=== PATIENT | female | born 1995 | race Caucasian/White ===

== ENCOUNTER 2016-12-25 05:26 | Emergency (ER) | payer OTHER ==
[~2016-12-25] VITALS: Ht 152.4 cm; Wt 63.0 kg
[~2016-12-25 05:26] MED LIST: ACET500C5 PO; CIPR500T4 PO; IBUP-1542 PO; METR500T PO; NITR-58 PO; ONDA4TAB14 PO; PHEN-537 PO; PRENAT PO
[2016-12-25 05:32] VITALS: Ht 152.4 cm; Wt 63.0 kg
[2016-12-25] MEDS ORDERED: CEPH-443 PO (05:40)
[2016-12-25] MEDS ORDERED: PHEN-616 PO (05:40)
[2016-12-25 05:43] LABS: URINE BLOOD (Dip) POC 3+ (NEGATIVE)
--- NOTE | 2016-12-25 05:43 | ERD ---
ER Documentation Chief Complaint Date/Time DATE: 12/25/16 TIME: 05:41 Chief Complaint painful urination x 1 day HPI This is a 21-year-old female presenting to the emergency department complaining of painful urination and frequency for the past 1 day. Patient rates the pain moderate in severity when she pees. Patient denies any fevers, flank pain, hematuria. Patient has not tried any medications for this. She denies . she denies of abdominal pain or pelvic pain ROS All systems reviewed and are negative except as per history of present illness. Medications Home Meds Active Scripts Phenazopyridine Hcl* (Phenazopyridine Hcl*) 200 Mg Tablet, 200 MG PO TID Y for PAIN, #10 TAB Prov:KAR ASHFORD 12/25/16 Cephalexin* (Keflex*) 500 Mg Capsule, 500 MG PO TID for 7 Days, CAP Prov:KAR ASHFORD 12/25/16 Acetaminophen* (Tylophen*) 500 Mg Capsule, 1 CAP PO Q6H Y for PAIN AND OR ELEVATED TEMP, #20 CAP Prov:STACIE CEE 06/18/16 Metronidazole* (Flagyl*) 500 Mg Tablet, 500 MG PO TID for 7 Days, TAB Prov:STACIE CEE 06/18/16 Ciprofloxacin Hcl* (Ciprofloxacin Hcl*) 500 Mg Tablet, 500 MG PO BID, #14 TAB Prov:STACIE CEE 06/18/16 Ondansetron (Ondansetron Odt) 4 Mg Tab.rapdis, 4 MG PO Q6H Y for NAUSEA AND/OR VOMITING, #12 TAB Prov:STACIE CEE 06/18/16 Phenazopyridine Hcl* (Pyridium*) 100 Mg Tab, 100 MG PO TID Y for URINARY PAIN, # 6 TAB Prov:DRAKE COELHO NP 11/22/15 Nitrofurantoin Monohyd Macrocr* (Macrobid*) 100 Mg Capsr, 100 MG PO BID for 7 Days, CAP Prov:DRAKE COELHO NP 11/22/15 Ibuprofen* (Ibuprofen*) 600 Mg Tab, 600 MG PO Q6, #20 0 Refills Prov:HUONG MCGUIRE MD 05/06/15 Reported Medications Multivit/Min/Fol Ac/Iron/Pren* ( S*) 1 Tab Tab, 1 TAB PO DAILY, TAB 05/05/15 Allergies Allergies: Coded Allergies: No Known Drug Allergies (Unverified Allergy, Unknown, 06/18/16) PMhx/Soc Medical and Surgical Hx: pt denies Medical Hx, pt denies Surgical Hx Hx Alcohol Use: No Hx Substance Use: No Hx Tobacco Use: No Smoking Status: Never smoker Physical Exam Vitals Vital Signs Date Time Temp Pulse Resp B/P Pulse Ox O2 Delivery O2 Flow Rate FiO2 12/25/16 05:32 98.3 92 20 122/80 100 Physical Exam General: well-developed/well-nourished, in no apparent distress, non-toxic appearing HENT: NC/AT Eyes: Conjunctiva normal Neck: Supple Pulm: CTA bilaterally, normal breathing CV: Normal S1S2 GI: Soft, non-distended, normal bowel sounds, TTP on suprapubic region Back: No midline tenderness, no masses, No CVAT Ext: No clubbing, cyanosis, or edema Neuro: Alert and orientated Skin: intact, normal turgor Psych: Normal mood and mentation Procedures/MDM MDM: This is a 21-year-old female presents to the ER with urinary tract infection. Low suspicion for pyelonephritis, nephrolithiasis, ovarian torsion due to physical examination and diagnostic testing. Urine dipstick showed positive urinary tract infection. Urine test is negative. Disposition: hemodynamically stable for discharge. Prescriptions Keflex and Pyridium have been given to take as directed. Strict precautions were given to return to the ER if not improving as expected or for any worsening signs and symptoms Departure Diagnosis: Primary Impression: UTI (urinary tract infection) Condition: Stable Patient Instructions: Understanding Urinary Tract Infections (UTIs) Referrals: FARHEEN GILMORE MD (PCP) Additional Instructions: Visite a phillips elisa umana para un EXAMEN.Regrese a estas instalaciones si no se mejora mary esperbamos o mary le dijimos. Carpenter toda la medicina sobeida y mary se le indic. Return to this facility if you are not improving as expected. KAR ASHFORD PA-C Dec 25, 2016 05:43
== END 2016-12-25 05:48 | disposition home or self-care (01) ==
LOC: FTE 05:26
DX: N39.0 Urinary tract infection, site not specified (principal)
CPT/HCPCS: 81003; Z7502; 99283

== ENCOUNTER 2017-03-14 19:04 | Emergency (ER) | payer OTHER ==
[~2017-03-14] VITALS: Ht 157.5 cm; Wt 63.5 kg
[~2017-03-14 19:04] MED LIST changes: +CEPH-443 PO; +PHEN-616 PO
[2017-03-14 19:15] VITALS: Ht 157.5 cm; Wt 63.5 kg
--- NOTE | 2017-03-14 19:56 | ERD ---
ER Documentation Chief Complaint Date/Time DATE: 03/14/17 TIME: 19:53 Chief Complaint dysuria x1 day. +bilateral leg rash x5 months. (SASHA RODRIGES MD) HPI This 21-year-old female presents with multiple complaints. She has dysuria for the last day. She denies fevers or vomiting, sore throat or cough. She also has a rash on her lower extremities last 2 days. She denies itching or foreign travel or additional complaints. She denies any upper extremity or truncal rashes.Patient denies any gross hematuria, vomitus or any other bleeding. (SASHA RODRIGES MD) ROS All systems reviewed and are negative except as per history of present illness. (SASHA RODRIGES MD) Medications Home Meds Active Scripts Phenazopyridine Hcl* (Pyridium*) 200 Mg Tab, 200 MG PO TID Y for URINARY PAIN, # 6 TAB Prov:KERRY NGUYEN NP 03/14/17 Ciprofloxacin Hcl* (Ciprofloxacin Hcl*) 500 Mg Tablet, 500 MG PO BID for 10 Days , TAB Prov:KERRY NGUYEN NP 03/14/17 Phenazopyridine Hcl* (Phenazopyridine Hcl*) 200 Mg Tablet, 200 MG PO TID Y for PAIN, #10 TAB Prov:KAR ASHFORD-C 12/25/16 Cephalexin* (Keflex*) 500 Mg Capsule, 500 MG PO TID for 7 Days, CAP Prov:KAR ASHFORD-C 12/25/16 Acetaminophen* (Tylophen*) 500 Mg Capsule, 1 CAP PO Q6H Y for PAIN AND OR ELEVATED TEMP, #20 CAP Prov:STACIE CEE-C 06/18/16 Metronidazole* (Flagyl*) 500 Mg Tablet, 500 MG PO TID for 7 Days, TAB Prov:STACIE CEEC 06/18/16 Ciprofloxacin Hcl* (Ciprofloxacin Hcl*) 500 Mg Tablet, 500 MG PO BID, #14 TAB Prov:STACIE CEE-C 06/18/16 Ondansetron (Ondansetron Odt) 4 Mg Tab.rapdis, 4 MG PO Q6H Y for NAUSEA AND/OR VOMITING, #12 TAB Prov:STACIE CEE PA-C 06/18/16 Phenazopyridine Hcl* (Pyridium*) 100 Mg Tab, 100 MG PO TID Y for URINARY PAIN, # 6 TAB Prov:DRAKE COELHO NP 11/22/15 Nitrofurantoin Monohyd Macrocr* (Macrobid*) 100 Mg Capsr, 100 MG PO BID for 7 Days, CAP Prov:DRAKE COELHO VOCATIONAL EXAMINER 11/22/15 Ibuprofen* (Ibuprofen*) 600 Mg Tab, 600 MG PO Q6, #20 0 Refills Prov:HUONG MCGUIRE MD 05/06/15 Reported Medications Multivit/Min/Fol Ac/Iron/Pren* ( S*) 1 Tab Tab, 1 TAB PO DAILY, TAB 05/05/15 Allergies Allergies: Coded Allergies: No Known Drug Allergies (Unverified Allergy, Unknown, 06/18/16) PMhx/Soc History of Surgery: No Anesthesia Reaction: No Hx Neurological Disorder: No Hx Respiratory Disorders: No Hx Cardiac Disorders: No Hx Psychiatric Problems: No Hx Miscellaneous Medical Probl: No Hx Alcohol Use: No Hx Substance Use: No Hx Tobacco Use: No Smoking Status: Never smoker (SASHA RODRIGES MD) Physical Exam Vitals Vital Signs Date Time Temp Pulse Resp B/P Pulse Ox O2 Delivery O2 Flow Rate FiO2 03/14/17 19:15 99.9 80 18 144/69 97 (KERRY NGUYEN NP) Physical Exam Const: []Alert, not ill-appearing. Alert, not ill-appearing per Head: Atraumatic Eyes: Normal Conjunctiva ENT: Normal External Ears, Nose and Mouth. Neck: Full range of motion..~ No meningismus. Resp: Clear to auscultation bilaterally Cardio: Regular rate and rhythm, no murmurs Abd: Soft, non tender, non distended. Normal bowel sounds Skin: No petechiae orPurpura.There is some nonblanching punctate 1-2 mm rash on her lower extremities. There is no skin lesions, warmth, erythema. Back: No midline or flank tenderness Ext: No cyanosis, or edema Neur: Awake and alert Psych: Normal Mood and Affect (SASHA RODRIGES MD) Result Diagram: 03/14/17205403/14/172054 Results 24 hrs Laboratory Tests Test 03/14/17 20:50 03/14/17 20:55 Urine Color YELLOW Urine Clarity SLIGHTLY CLOUDY Urine pH 5.0 Urine Specific [place] 1.023 Urine Ketones NEGATIVEmg/dL Urine Nitrite NEGATIVEmg/dL Urine Bilirubin NEGATIVEmg/dL Urine Urobilinogen NEGATIVEmg/dL Urine Leukocyte Esterase 2+Gurvinder/ul Urine Microscopic RBC 3/HPF Urine Microscopic WBC 14/HPF Urine Squamous Epithelial Cells FEW/HPF Urine Bacteria FEW/HPF Urine Hemoglobin 2+mg/dL Urine Glucose NEGATIVEmg/dL Urine Total Protein NEGATIVEmg/dl White Blood Count 10.910^3/ul Red Blood Count 4.4610^6/ul Hemoglobin 13.1g/dl Hematocrit 39.6% Mean Corpuscular Volume 88.8fl Mean Corpuscular Hemoglobin 29.4pg Mean Corpuscular Hemoglobin Concent 33.1g/dl Red Cell Distribution Width 12.4% Platelet Count 80448^3/UL Mean Platelet Volume 10.3fl Neutrophils % 68.3% Lymphocytes % 25.6% Monocytes % 3.9% Eosinophils % 1.6% Basophils % 0.3% Nucleated Red Blood Cells % 0.0/100WBC Neutrophils # (Manual) 7.510^3/ul Lymphocytes # 2.810^3/ul Monocytes # 0.410^3/ul Eosinophils # 0.210^3/ul Basophils # 0.010^3/ul Nucleated Red Blood Cells # 0.010^3/ul Sodium Level 140mmol/L Potassium Level 3.8mmol/L Chloride Level 106mmol/L Carbon Dioxide Level 26mmol/L Anion Gap 12 Blood Urea Nitrogen 9mg/dl Creatinine 0.69mg/dl Glucose Level 91mg/dl Calcium Level 9.6mg/dl Total Bilirubin 0.1mg/dl Direct Bilirubin 0.00mg/dl Indirect Bilirubin 0.1mg/dl Aspartate Amino Transf (AST/SGOT) 18IU/L Alanine Aminotransferase (ALT/SGPT) 28IU/L Alkaline Phosphatase 66IU/L Total Protein 7.9g/dl Albumin 4.5g/dl Globulin 3.40g/dl Albumin/Globulin Ratio 1.32 (KERRY NGUYEN NP) Procedures/MDM Given the nonblanching nature of rash CBC and CMP performed which are pending. Urine also pending. Case will be signed out to nurse practitioner cuisia. NesbittesHave the clinical appearance of viral rash or possible Henoch-Schnlein purpura patient shows no signs or symptoms of additional bleeding she has no hematuria does not ill-appearing. Further treatment and management will depend on laboratory work and urinalysis. (SASHA RODRIGES MD) Patient signed out to me by Dr Rodriges, lab results were reviewed, urinary tract infection and was treated with oral antibiotics and Pyridium to help with symptom relief, mild elevation of white count, most likely is consistent with infection. No bandemia noted, but the pyelonephritis at this time. Patient's rash most likely is viral, coags are normal. Patient was advised to follow-up with primary care doctor in 2 days for reevaluation of symptoms. Return to emergency department for any worsening symptoms. Disposition: Home. Stable (KERRY NGUYEN NP) Departure Diagnosis: Primary Impression: UTI (urinary tract infection) Urinary tract infection type: acute cystitis Hematuria presence: with hematuria Qualified Code: N30.01 - Acute cystitis with hematuria Additional Impression: Rash Condition: Stable SASHA RODIRGES MD Mar 14, 2017 19:56 KRERY NGUYEN NP Mar 14, 2017 22:16
[2017-03-14 21:16] LABS: ADD UMIC YES; UR ASCORBIC ACID NEGATIVE (NEGATIVE); UR BACTERIA FEW /HPF (NONE SEEN); UR BILIRUBIN (Dip) NEGATIVE (NEGATIVE); UR BLOOD (Dip) 2+ mg/dL (NEGATIVE); UR CLARITY SLIGHTLY CLOUDY (CLEAR); UR COLOR YELLOW (YELLOW); UR GLUCOSE (Dip) NEGATIVE (NEGATIVE); UR KETONES (Dip) NEGATIVE (NEGATIVE); UR LEUKOCYTE ESTERASE (Dip) 2+ Leu/ul (NEGATIVE); UR NITRITE (Dip) NEGATIVE (NEGATIVE); UR RBC 3 /HPF (0-5); UR SPECIFIC GRAVITY (Dip) 1.023 (1.003-1.030); UR SQUAMOUS EPITHELIAL CELL FEW /HPF (FEW); UR TOTAL PROTEIN (Dip) NEGATIVE (NEGATIVE); UR UROBILINOGEN (Dip) NEGATIVE (NEGATIVE)
[2017-03-14 21:38] LABS: BASOPHILS % 0.3 % (0.0-2.0); EOSINOPHILS # 0.2 10^3/ul (0.0-0.5); EOSINOPHILS % 1.6 % (0.0-7.0); HEMATOCRIT 39.6 % (37.0-47.0); HEMOGLOBIN 13.1 g/dl (12.0-16.0); LYMPHOCYTES # 2.8 10^3/ul (0.8-2.9); LYMPHOCYTES % 25.6 % (18.0-55.0); MEAN CORPUSCULAR HEMOGLOBIN 29.4 pg (29.0-33.0); MEAN CORPUSCULAR HGB CONC 33.1 g/dl (32.0-37.0); MEAN CORPUSCULAR VOLUME 88.8 fl (72.0-104.0); MEAN PLATELET VOLUME 10.3 fl (7.4-10.4); MONOCYTE # 0.4 10^3/ul (0.3-0.9); MONOCYTES % 3.9 % (0.0-13.0); NEUTROPHILS % 68.3 % (30.0-74.0); PLATELET COUNT 365 10^3/UL (140-415); RED BLOOD COUNT 4.46 10^6/ul (4.20-5.40); RED CELL DISTRIBUTION WIDTH 12.4 % (11.5-14.5); WHITE BLOOD COUNT 10.9 10^3/ul (4.8-10.8)
[2017-03-14 22:00] LABS: ALBUMIN 4.5 g/dl (3.3-4.9); ALBUMIN/GLOBULIN RATIO 1.32; BILIRUBIN,INDIRECT 0.1 mg/dl (0-1.1); BILIRUBIN,TOTAL 0.1 mg/dl (0.2-1.3); CALCIUM 9.6 mg/dl (8.4-10.2); CREATININE 0.69 mg/dl (0.44-1.00); POTASSIUM 3.8 mmol/L (3.5-5.1); TOTAL PROTEIN 7.9 g/dl (6.1-8.1)
[2017-03-14] MEDS ORDERED: CIPR500T4 PO (22:14)
[2017-03-14] MEDS ORDERED: PHEN-538 PO (22:14)
== END 2017-03-14 22:14 | disposition home or self-care (01) ==
LOC: FTE 19:04
DX: N30.01 Acute cystitis with hematuria (principal); R21 Rash and other nonspecific skin eruption
CPT/HCPCS: 36415; 80053; 81001; 85025; Z7502; 99283

== ENCOUNTER 2017-09-25 17:21 | Emergency (ER) | END 2017-09-25 20:34 | disposition home or self-care (01) ==

== ENCOUNTER 2018-09-11 09:41 | Emergency (ER) | payer OTHER ==
[~2018-09-11] VITALS: Ht 167.6 cm; Wt 106.0 kg
[~2018-09-11 09:41] MED LIST changes: +BEN25 PO; +HC30CR25 TOP; +PHEN-538 PO; -PHEN-616 PO; +PHEN-717 PO; +PRED20TA PO
[2018-09-11 09:52] VITALS: BP 152/61; PULSE 111; RESP 20; Ht 167.6 cm; Wt 106.0 kg
[2018-09-11] MEDS ORDERED: ACET500C5 PO (10:14)
[2018-09-11] MEDS ORDERED: BEN25 PO (10:14)
[2018-09-11] MEDS ORDERED: OFLO5DRO7 LEFT EAR (10:14)
[2018-09-11] MEDS ORDERED: AMOX500C2 PO (10:14)
--- NOTE | 2018-09-11 10:39 | ERD ---
ER Documentation Chief Complaint Chief Complaint Complains of bilateral ear pain x 3 days HPI 23-year-old female patient who is currently 30 weeks is presenting to the ED for a sore throat, cough, rhinorrhea, ear pain. Patient reports that she does not remember the exact last menstruation. Denies any chest pain, shortness of breath, nausea, vomiting, diarrhea, neck stiffness. Patient denies any vaginal bleeding, vaginal discharge, abdominal pain, dysuria, fever. ROS All systems reviewed and are negative except as per history of present illness. Medications Home Meds No Active Prescriptions or Reported Meds Allergies Allergies: Coded Allergies: No Known Drug Allergies (Unverified Allergy, Unknown, 09/25/17) PMhx/Soc History of Surgery: No Anesthesia Reaction: No Hx Neurological Disorder: No Hx Respiratory Disorders: No Hx Cardiac Disorders: No Hx Psychiatric Problems: No Hx Miscellaneous Medical Probl: No Hx Alcohol Use: No Hx Substance Use: No Hx Tobacco Use: No FmHx Family History: No diabetes, No coronary disease Physical Exam Vitals Vital Signs Date Temp Pulse Resp B/P (MAP) Pulse Ox O2 O2 Flow FiO2 Time Delivery Rate 09/11/18 96.6 111 20 152/61 98 09:52 (91) Physical Exam Const: Aga-erz-[id number], well-nourished. In no acute distress. Head: Atraumatic, normocephalic Eyes: Normal Conjunctiva without injection. No purulent discharge. PERRL. EOMI ENT: Normal external ear. Left ear canal with purulent discharge noticed inability visualize the TM. No tenderness palpation of the bilateral mastoid. Nasal canal clear with normal turbinates. Moist oropharynx without tonsillar exudates. Non-erythematous pharynx. Uvula midline. No drooling. No trismus. Neck: Full range of motion. No meningismus. No cervical lymphadenopathy. Resp: Clear to auscultation bilaterally. No wheezing, rhonchi, rales, or crackles. No accessory muscle use. No retractions. Cardio: Regular rate and rhythm. No murmurs, rubs or gallops. Abd: Soft, non tender, non distended. Normal bowel sounds. No palpable masses. No rebound tenderness. No guarding. Skin: No petechiae or rashes Back: No midline tenderness. No CVA tenderness. Ext: No cyanosis, or edema. Neur: Awake and alert. Psych: Normal Mood and Affect Procedures/MDM 23-year-old female patient with no significant past medical history presents to ED complaining of bilateral ear pain that started 3 days ago associated with cough, sore throat, rhinorrhea. Patient is afebrile nontoxic appearing. Patient's physical exam is consistent with otitis media and externa. Patient does not have tenderness to palpation of mastoid. Low suspicion for mastoiditis. Patient's physical exam include lungs which were clear to auscultation and a normal pulse oximetry. Patient is speaking in full sentences. There is a low suspicion for tympanic membrane rupture, pneumonia, epiglottitis, croup, viral/strep pharyngitis, sinusitis, peritonsillar abscess, retropharyngeal abscess, meningitis, sepsis, acute abdomen or other emergent conditions. Diagnosis: Ear pain, Runny nose Discharge medications: Benadryl, Tylenol, Amoxicillin, Ofloxacin otic Follow up with primary care physician in 1-2 days. Instructed patient to return to the ED sooner for any worsening symptoms. Patient's questions were answered. Patient is hemodynamically stable. Patient understood and agreed with discharge plan. Patient discharged stable. Disclaimer: Inadvertent spelling and grammatical errors are likely due to EHR/dictation software use and do not reflect on the overall quality of patient care. Also, please note that the electronic time recorded on this note does not necessarily reflect the actual time of the patient encounter. Patient was instructed to go upstairs to OB triage for clearance of her . Departure Diagnosis: Primary Impression: Ear pain Laterality: bilateral Qualified Codes: H92.03 - Otalgia, bilateral Additional Impression: Runny nose Condition: Stable Patient Instructions: Otitis Media, Abx Tx (Adult), External Ear Infection (Adult) Referrals: COMM[facility]ITY CLIN[facility] YOU HAVE RECEIVED A MEDICAL SCREENING EXAM AND THE RESULTS INDICATE THAT YOU DO NOT HAVE A CONDITION THAT REQUIRES URGENT TREATMENT IN THE EMERGENCY DEPARTMENT. FURTHER EVALUATION AND TREATMENT OF YOUR CONDITION CAN WAIT UNTIL YOU ARE SEEN IN YOUR DOCTORS OFFICE WITHIN THE NEXT 1-2 DAYS. IT IS YOUR RESPONSIBILITY TO MAKE AN APPOINTMENT FOR FOLOW-UP CARE. IF YOU HAVE A PRIMARY DOCTOR --you should call your primary doctor and schedule an appointment IF YOU DO NOT HAVE A PRIMARY DOCTOR YOU CAN CALL OUR PHYSICIAN REFERRAL HOTLINE AT IF YOU CAN NOT AFFORD TO SEE A PHYSICIAN YOU CAN CHOSE FROM THE FOLLOWING FORMERLY [facility] [address] [place] [facility] [address] [place] [facility] [address] [facility] [address] [facility] [address] [facility]. [facility]. [address] [facility]. [facility] YOU HAVE RECEIVED A MEDICAL SCREENING EXAM AND THE RESULTS INDICATE THAT YOU DO NOT HAVE A CONDITION THAT REQUIRES URGENT TREATMENT IN THE EMERGENCY DEPARTMENT. FURTHER EVALUATION AND TREATMENT OF YOUR CONDITION CAN WAIT UNTIL YOU ARE SEEN IN YOUR DOCTORS OFFICE WITHIN THE NEXT 1-2 DAYS. IT IS YOUR RESPONSIBILITY TO MAKE AN APPOINTMENT FOR FOLOW-UP CARE. IF YOU HAVE A PRIMARY DOCTOR --you should call your primary doctor and schedule and appointment IF YOU DO NOT HAVE A PRIMARY DOCTOR YOU CAN CALL OUR PHYSICIAN REFERRAL HOTLINE AT . IF YOU CAN NOT AFFORD TO SEE A PHYSICIAN YOU CAN CHOSE FROM THE FOLLOWING [facility]: [facility] [address] [place] [address] [facility] [address] [place] [address] [facility] [address] [place] [address] [facility] URGENT CARE/SPECIALTIES Additional Instructions: Llame al doctor MAANA y meghana robert STEFANIE PARA DENTRO DE 2-3 HUANG.Dgale a la secretaria que nosotros le instruimos hacer esta stefanie.Avise o llame si phillips condicin se empeora antes de la stefanie. Regresa aqui si peor o no mejor. Usted galvez sido dado de carmen de la ER sin embargo usted debe ser visto por el [employer]PORATE LEGAL INTERN Triage arriba para cerciorarse de que el beb est haciendo jessica MOSES VANESSA PA-C Sep 11, 2018 10:39
== END 2018-09-11 10:42 | disposition home or self-care (01) ==
LOC: FTE 09:41
DX: O99.89 Other specified diseases and conditions complicating pregnancy, childbirth and the puerperium (principal); H92.03 Otalgia, bilateral; R09.89 Other specified symptoms and signs involving the circulatory and respiratory systems; Z3A.30 30 weeks gestation of pregnancy
CPT/HCPCS: 99283

== ENCOUNTER 2018-09-11 10:56 | Outpatient (CLI) | payer OTHER ==
[~2018-09-11] VITALS: Ht 154.9 cm; Wt 70.8 kg
[~2018-09-11 10:56] MED LIST changes: +AMOX500C2 PO; +OFLO5DRO7 LEFT EAR
[2018-09-11 11:12] VITALS: Ht 154.9 cm; Wt 70.8 kg
[2018-09-11 11:33] VITALS: BP 122/73; PULSE 112; RESP 18
[2018-09-11] MEDS ORDERED: LACTATED RINGER'S 1,000 ML IV SCH (11:50)
[2018-09-11] MEDS ORDERED: METHYLERGONOVINE 0.2 MG INJ IM PRN (12:00)
[2018-09-11] MEDS ORDERED: CARBOPROST 250 MCG INJ IM PRN (12:00)
[2018-09-11] MEDS ORDERED: BUTORPHANOL 2 MG INJ IV PRN (12:00)
[2018-09-11] MEDS ORDERED: MISOPROSTOL 200 MCG TAB PR PRN (12:00)
[2018-09-11] MEDS ORDERED: OXYTOCIN 30 UNITS/LR 500 ML IV SCH ×2 (12:00)
[2018-09-11] MEDS ORDERED: LIDOCAINE 1% (MPF) 30 ML INJ INJ PRN (12:00)
[2018-09-11] MEDS ORDERED: IBUPROFEN 600 MG TAB PO PRN (12:00)
[2018-09-11] MEDS ORDERED: OXYTOCIN 30 UNITS/LR 500 ML IV PRN (12:00)
--- NOTE | 2018-09-11 13:34 | PN ---
Triage Information Date/Time Reason for visit: Ear infection ,Sent fro ER for clearance Weeks of Gestation 29+ /Para n/a Diabetes: none Hypertention: none Objective Vital Signs Date Temp Pulse Resp B/P (MAP) Pulse Ox O2 O2 Flow FiO2 Time Delivery Rate 09/11/18 98.4 112 18 122/73 Room Air 11:33 (89) Heart Rate: 140's Contractions: None Disposition: Discharge Assessment/Plan Bpp 04/12 Questions answered Follow up with provider Precautions discussed JOAQUÍN JENKINS M.D. Sep 11, 2018 13:34
--- NOTE | 2018-09-11 13:52 | TRIAGE ---
OB Triage Datetime Report Generated by CPN: 09/11/2018 13:51 Datetime: 09/11/2018 12:30 Stage of : OB Triage Maternal Assessment Level of Consciousness: Fully Conscious Labor Evaluation Frequency: 0 Monitor Mode: External Resting Tone [place]: Relaxed Heart Rate FHR Baseline Rate: 135 Monitor Mode: External US Variability: Moderate 6-25 bpm Accelerations: 15X15 Decelerations: None Category: Category I Pain Assessment Pain Scale: 0 Pain Goal: 3 Vaginal Exam Membrane Status: Intact Vaginal Bleeding: None Datetime: 09/11/2018 12:00 Stage of : OB Triage Maternal Assessment Level of Consciousness: Fully Conscious Labor Evaluation Frequency: 0 Monitor Mode: External Resting Tone [place]cal[place]: Relaxed Heart Rate FHR Baseline Rate: 135 Monitor Mode: External US Variability: Moderate 6-25 bpm Accelerations: 15X15 Decelerations: None Category: Category I Pain Assessment Pain Scale: 0 Pain Goal: 3 Vaginal Exam Membrane Status: Intact Vaginal Bleeding: None Datetime: 09/11/2018 11:52 Comments: PT. SITTING UP. Datetime: 09/11/2018 11:15 Monitor Mode: External Monitor Mode: External US Datetime: 09/11/2018 11:10 Assessment Type: Triage Maternal Assessment Level of Consciousness: Fully Conscious DTR's/Clonus: DTRs 2+; No Clonus Headache: Denies Blurred Vision: No Respiratory Effort: Unlabored; Regular Rhythm; Equal Expansion Breath Sounds, Left: Clear and Equal Breath Sounds, Right: Clear and Equal Nausea/Vomiting: Denies RUQ Epigastric Pain: Denies Lower Extremities Edema: None Degree: None Upper Extremities Edema: None Degree: None Facial Edema: None Fall Risk Assessment History of Falling: (0) No Secondary Diagnosis: (0) No Ambulatory Aid: (0) Bedrest/Nurse Assist IV Therapy: (0) No Gait: (0) Normal/Bedrest/Immobile Mental Status: (0) Oriented to Own Ability Fall Score: 0 Fall Risk Score Definition: No Risk: No action required Datetime: 09/11/2018 11:08 Time of Arrival: 09/11/2018 10:50 EGA: 29.5 Arrived By: Ambulatory Arrived From: Emergency Dept Chief Complaint: PT SENT UP FROM ED TO BE CLEARED BY OB, WAS SEEN AND TREATED FOR EAR PAIN IN ED. Movement: Present Contractions: Denies/Absent Rupture of Membranes: Denies Vaginal Bleeding: None Vaginal Discharge: Denies Recent Sexual Intercouse: Denies Abdominal Trauma: Not Applicable Patient Complaints: None Time Provider Notified: 09/11/2018 12:10 Provider Notified: ALICE Initial Plan: BPP/NST
== END 2018-09-11 13:46 | disposition home or self-care (01) ==
LOC: OBT 10:56 → L-D 10:57 → OBT 13:46
PROVIDERS: ATTEND Obstetrics & Gynecology
DX: O26.893 Other specified pregnancy related conditions, third trimester (principal); H92.03 Otalgia, bilateral; Z3A.29 29 weeks gestation of pregnancy
CPT/HCPCS: 76818; Z7500; G0463

== ENCOUNTER 2018-11-17 19:39 | Inpatient (IN) | payer OTHER ==
[~2018-11-17] VITALS: Ht 160 cm; Wt 72.6 kg
[2018-11-17 20:12] VITALS: BP 130/63; PULSE 80; RESP 17; Ht 160 cm; Wt 72.6 kg
[2018-11-17] MEDS: LACTATED RINGER'S 1,000 ML IV SCH (20:50)
[2018-11-17] MEDS ORDERED: OXYTOCIN 30 UNITS/LR 500 ML IV SCH ×2 (21:00)
[2018-11-17] MEDS ORDERED: AMPICILLIN 2 GM/NS (PMX) 100 ML IV ONE (21:00)
[2018-11-17] MEDS ORDERED: BUTORPHANOL 2 MG INJ IV PRN (21:00)
[2018-11-17] MEDS ORDERED: MISOPROSTOL 200 MCG TAB PR PRN (21:00)
[2018-11-17] MEDS ORDERED: CARBOPROST 250 MCG INJ IM PRN (21:00)
[2018-11-17] MEDS ORDERED: METHYLERGONOVINE 0.2 MG INJ IM PRN (21:00)
[2018-11-17] MEDS ORDERED: OXYTOCIN 30 UNITS/LR 500 ML IV PRN (21:00)
[2018-11-17] MEDS ORDERED: LIDOCAINE 1% (MPF) 30 ML INJ INJ PRN (21:00)
--- NOTE | 2018-11-17 23:21 | HP ---
Date/Time of Note Date/Time of Note DATE: 11/17/18 TIME: 23:18 OB - History Hx of Present Free Text/Dictation c/o contractionts Last Menstrual Period: Feb 16, 2019 Estimated Due Date: November 22, 2018 : 2 Para: 1 Care: Good Care Past Family/Social History * Past Medical, Surgical, Family and Obstetric Histories reviewed from chart. OB Admission Exam Vital Signs Vital Signs Vital Signs Date Temp Pulse Resp B/P (MAP) Pulse Ox O2 O2 Flow FiO2 Time Delivery Rate 11/17/18 98.0 80 17 130/63 Room Air 20:12 (85) Physical Exam HEENT: WNL Heart: Rhythm Normal Extremities: Normal Cervical Dilatation: 9cm Effacement: 100% Membranes: Intact Contractions on Admission: 6-10 Minutes Apart Last 72 hours Lab Results CBC & BMP 11/17/18 21:02 OB Assessment/Plan Reason for admission: active labor Plan: Other (IUP 39 weeks in labor) Induction Method: other (expected mamagement, prepare for delivery) SASHA MAI MD November 17, 2018 23:21
[2018-11-18] VITALS (7 sets, daily range): BP systolic 108–121; BP diastolic 56–72; PULSE 67–80; RESP 18–20
[2018-11-18] MEDS ORDERED: OXYTOCIN 30 UNITS/LR 500 ML IV SCH (00:13)
--- NOTE | 2018-11-18 00:13 | LDN ---
Date/Time of Note Date/Time of Note DATE: 11/18/18 TIME: 00:10 Delivery Summary Patient in dorsal lithotomy position. Prepped and draped in sterille fashion. Pushing with contractionts. head delivered atraumatically. Nose and moth succtioned. Anterior and posterior shoulders delivered. hand of waiting RN. Cord blood collected. Lydocaine 10 cc injected. Perineal laceration repaired with 3 0 chromic, Placenta delivered spontaneusly, Ice pack at perineum, count correct. Weeks of Gestation 39 Placenta Delivered: Spontaneously Meconium: none Episiotomy: No Anesthesia type: Local Estimated blood loss: 300 Sponge & Needle done & correct: Yes All needle counts correct: Yes SASHA MAI MD November 18, 2018 00:13
[2018-11-18] MEDS ORDERED: METHYLERGONOVINE 0.2 MG INJ IM PRN (00:30)
[2018-11-18] MEDS ORDERED: CARBOPROST 250 MCG INJ IM PRN (00:30)
[2018-11-18] MEDS ORDERED: NACL 0.9% 3 ML SYG IV SCH (00:30)
[2018-11-18] MEDS ORDERED: ACETAMINOPHEN 325 MG TAB PO PRN (00:30)
[2018-11-18] MEDS ORDERED: LANOLIN HPA 1 PKT TOP PRN (00:30)
[2018-11-18] MEDS ORDERED: BENZOCAINE 20% 56 ML SPRAY TOP PRN (00:30)
[2018-11-18] MEDS ORDERED: OXYTOCIN 30 UNITS/LR 500 ML IV PRN (00:30)
[2018-11-18] MEDS ORDERED: ONDANSETRON 4 MG INJ IV PRN (00:30)
[2018-11-18] MEDS ORDERED: MISOPROSTOL 200 MCG TAB PR PRN (00:30)
[2018-11-18] MEDS ORDERED: AMPICILLIN 1 GM/NS (PMX) 50 ML IV SCH (01:00)
[2018-11-18] MEDS: LACTATED RINGER'S 1,000 ML IV SCH ×2 (04:34→12:34)
[2018-11-18] MEDS: IBUPROFEN 800 MG TAB PO SCH ×3 (06:23→17:37)
[2018-11-19] MEDS: IBUPROFEN 800 MG TAB PO SCH ×4 (01:21→18:10)
[2018-11-19 03:50] VITALS: BP 97/59; PULSE 66; RESP 19
[2018-11-19 08:00] VITALS: BP 118/62; PULSE 79; RESP 19
--- NOTE | 2018-11-19 13:07 | DS ---
Date/Time of Note Date/Time of Note Home today or next day DATE: 11/19/18 TIME: 13:06 Obstetrical Discharge Record Final Diagnosis Final Diagnosis: Term delivered Other Final Diagnosis Status post vaginal delivery Vaginal Delivery Obstetrical Delivery: Spontaneous, Laceration, Repaired Condition on Discharge Physical Assessment Last Vitals: See nurse's notes Voiding: Yes Bowel Movement: Yes Breast: Soft, non-tender, Filling Fundus: Firm Abdomen and Incision: Abdomen is soft with firm fundus Episiotomy: Perineum is healing well and appears clean Calf Tenderness: No Patient Condition: Good HUONG MCGUIRE MD November 19, 2018 13:07
--- NOTE | 2018-11-19 13:08 | PD.PPDC ---
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 Instruction Provider Information Physician Information 23-year-old female had vaginal delivery Diagnosis [id number] Final Diagnosis: [id number] Status post vaginal delivery Condition [id number] Patient Condition: Terib0f Good Diet [id number] Diet: Xggno9e Resume Regular Diet Activity/Restrictions [id number] Activity: [id number] Normal Activity May Shower [id number] Restrictions: Sctjl6n Nothing in the Vagina [id number] Return to Work or School: [id number] Jan 08, 2019 Follow-up Follow-up with Physician: 2, 4, Week/Weeks Return to clinic for [id number] OB Instructions: [id number] Breast Tenderness (Clinic for follow-up) Depression Comment: Pelvic rest for 6 weeks HUONG MCGUIRE MD November 19, 2018 13:08
[2018-11-19] MEDS ORDERED: IBUP800T48 PO (13:09)
[2018-11-19 16:04] VITALS: BP 112/69; PULSE 75; RESP 18
[2018-11-19 20:00] VITALS: BP 117/62; PULSE 74; RESP 20
[2018-11-20] MEDS: IBUPROFEN 800 MG TAB PO SCH ×2 (00:13→05:16)
[2018-11-20 04:13] VITALS: BP 124/64; PULSE 75; RESP 20
[2018-11-20 08:30] VITALS: BP 129/71; PULSE 74; RESP 18
--- NOTE | 2018-11-21 13:19 | DELSUM ---
Delivery Summary A-C Datetime Report Generated by CPN: 11/21/2018 13:18 DELIVERY PERSONNEL [employer] Administrator: Kirkpatrick, Steph MATERNAL INFORMATION Delivery Anesthesia: Local Medications in Delivery: 30 UNITS PITOCIN Delivery QBL (ml): 300 Placenta Cultured: No Maternal Complications: None LABOR SUMMARY EDC: 11/22/2018 00:00 No. Babies in Womb: 1 Attempted: No Labor Anesthesia: None LABOR INFORMATION Reason for Induction: Not Applicable Onset of Labor: 11/17/2018 03:00 Complete Dilatation: 11/17/2018 23:42 Oxytocin: N/A Group B Beta Strep: Done, Result Unknown Antibiotics # of Doses: 1 Antibiotics Time of Last Dose: 11/17/2018 20:55 Steroids Given: None Reason Steroids Not Administered: Not Applicable MEMBRANES Membranes Rupture Method: Artificial Rupture of Membranes: 11/17/2018 23:48 Length of Rupture (hr): 0.03 Amniotic Fluid Color: Clear Amniotic Fluid Amount: Small Amniotic Fluid Odor: None STAGES OF LABOR Stage 1 hr: 20 Stage 1 min: 42 Stage 2 hr: 0 Stage 2 min: 8 Stage 3 hr: 0 Stage 3 min: 15 Total Time in Labor hr: 21 Total Time in Labor min: 5 VAGINAL DELIVERY Laceration Extension: First Degree Laceration Type: Perineal Laceration Repair: Yes Initial Vag Sponge Count: 10 Final Vag Sponge Count: 10 Initial Vag Sharps Count: 1+1 Final Vag Sharps Count: 2 Sponge Count Correct: Yes; Vaginal Sweep Performed Sharps Count Correct: Yes BABY A INFORMATION Infant Delivery Date/Time: 11/17/2018 23:50 Method of Delivery: Vaginal Born in Route : No : N/A Forceps: N/A Vacuum Extraction: N/A Shoulder Dystocia : N/A SHOULDER DYSTOCIA BABY A Delivery Date/Time: 11/17/2018 23:50 PRESENTATION/POSITION BABY A Presentation: Cephalic Cephalic Presentation: Vertex Breech Presentation: N/A PLACENTA INFORMATION BABY A Placenta Delivery Time : 11/18/2018 00:05 Placenta Method of Delivery: Expressed Placenta Status: Delivered SCORES BABY A Heart Rate 1 min: >100 bpm Resp Effort 1 min: Good Cry Reflex Irritability 1 min: Cough/Sneeze/Pulls Away Muscle Tone 1 min: Active Motion Color 1 min: Body [place], Extremit Blue Resuscitation Effort 1 min: Tactile Stimulation SCORE 1 MIN: 9 Heart Rate 5 min: >100 bpm Resp Effort 5 min: Good Cry Reflex Irritability 5 min: Cough/Sneeze/Pulls Away Muscle Tone 5 min: Active Motion Color 5 min: Body [place], Extremit Blue Resuscitation Effort 5 min: Tactile Stimulation SCORE 5 MIN: 9 INFORMATION BABY A Gestational Age at Delivery: 39.2 Gestational Status: Full Term- 39- 40.6 Weeks Infant Outcome : Liveborn Infant Condition : Stable Infant Sex: Male IDENTIFICATION/MEDS BABY A ID Band Number: [id number] ID Band Location: Right Leg; Left Arm Sensor Applied: Yes Sensor Number: [id number] Sensor Location : Cord Clamp Vitamin K Given : Not Given Erythromycin Given: Not Given WEIGHT/LENGTH BABY A Infant Birthweight (gm): 3330 Infant Weight (lb): 7 Weight (oz): 5 Infant Length (in): 20.25 Length (cm): 51.44 CORD INFORMATION BABY A No. Cord Vessels: 3 Nuchal Cord : N/A Cord Blood Taken: Yes Infant Suction: Mouth; Nose ASSESSMENT BABY A Complications: Multiple Late Decels; Multiple Variable Decels Physical Findings at Delivery: Within Normal Limits Infant Respirations: Appears Normal Hospital Clinic Assistant/ALS Called : No Care By: FERNIE LEHMAN Transferred To: Remains with Mother
--- NOTE | 2018-11-21 14:19 | NSTRPT ---
NST Information Datetime Report Generated by CPN: 11/21/2018 14:18 Datetime: 11/17/2018 13:30 NST Information EGA: 39.2 Test Number: 11 Time on Monitor: 11/17/2018 13:48 Time off Monitor: 11/17/2018 14:15 NST Duration (Min): 27 Reason for NST: Other Reason for NST Other: Marginal Cord Insertion Test and Monitor Explained: Monitor Explained; Test Explained; Verbalized Understanding Pulse: 78 Resp: 16 SBP: 121 DBP: 67 Test Evaluation NST Interventions: None Patient States Movement: Present Contraction Frequency: X2 FHR Baseline : 145 Variability: Moderate 6-25bpm Accelerations: 15X15 Decelerations: None FHR Category: Category I NST Results: Reactive Comments: PT TO U/S US-CEPHALIC CONSTANZA-9.4 CM Electronically Signed By E-Signature: with User ID: [id number] Datetime: 11/14/2018 13:20 NST Information EGA: 38.6 Test Number: 10 Time on Monitor: 11/14/2018 13:42 Time off Monitor: 11/14/2018 14:06 NST Duration (Min): 24 Reason for NST: Other Reason for NST Other: Marginal cord insertion Test and Monitor Explained: Monitor Explained; Test Explained; Verbalized Understanding Pulse: 81 Resp: 18 SBP: 117 DBP: 56 Test Evaluation NST Interventions: None Patient States Movement: Present Contraction Frequency: X1/70/MILD/pain level 0 FHR Baseline : 135 Variability: Moderate 6-25bpm Accelerations: 15X15 Decelerations: None FHR Category: Category I NST Results: Reactive Comments: PT TO U/S CONSTANZA 14.6 CM CEPHALIC Electronically Signed By E-Signature: with User ID: [id number] Datetime: 11/10/2018 13:47 NST Information EGA: 38.2 Test Number: 9 Time on Monitor: 11/10/2018 14:01 Time off Monitor: 11/10/2018 14:21 NST Duration (Min): 20 Reason for NST: Other Reason for NST Other: MARGINAL CORD INSERTION Test and Monitor Explained: Monitor Explained; Test Explained; Verbalized Understanding Pulse: 84 Resp: 18 SBP: 105 DBP: 60 Test Evaluation NST Interventions: None Patient States Movement: Present Contraction Frequency: none FHR Baseline : 145 Variability: Moderate 6-25bpm Accelerations: 15X15 Decelerations: None FHR Category: Category I NST Results: Reactive Comments: PT TO U/S constanza 14.0 cm cephalic Electronically Signed By E-Signature: with User ID: [id number] Datetime: 11/07/2018 13:09 NST Information EGA: 37.6 Test Number: 8 Time on Monitor: 11/07/2018 13:39 Time off Monitor: 11/07/2018 14:15 NST Duration (Min): 36 Reason for NST: Other Reason for NST Other: Marginal Cord Insertion Test and Monitor Explained: Monitor Explained; Test Explained; Verbalized Understanding Pulse: 83 Resp: 18 SBP: 119 DBP: 58 Test Evaluation NST Interventions: Reposition Patient; Acoustic Stimulation Patient States Movement: Present Contraction Frequency: X1(denies) FHR Baseline : 130 Variability: Moderate 6-25bpm Accelerations: 15X15 Decelerations: None FHR Category: Category I NST Results: Reactive Comments: To u/s. CONSTANZA 9.5cm. cephalic. Electronically Signed By E-Signature: with User ID: [id number] Datetime: 11/03/2018 13:38 NST Information EGA: 37.2 NST Duration (Min): 28 Datetime: 10/31/2018 13:08 NST Information EGA: 36.6 NST Duration (Min): 20 Datetime: 10/27/2018 13:02 NST Information EGA: 36.2 NST Duration (Min): 22 Datetime: 10/24/2018 13:01 NST Information EGA: 35.6 NST Duration (Min): 24 Datetime: 10/20/2018 13:09 NST Information EGA: 35.2 NST Duration (Min): 37 Datetime: 10/17/2018 14:52 NST Information EGA: 34.6 NST Duration (Min): 27 Datetime: 10/13/2018 13:45 NST Information EGA: 34.2 NST Duration (Min): 25
== END 2018-11-20 11:40 | disposition home or self-care (01) | DRG 807 ==
LOC: OBT 19:39 → L-D 19:41 → OBT 20:25 → PP1 11-18 01:51
PROVIDERS: ADMIT Obstetrics & Gynecology; ATTEND Obstetrics & Gynecology
PROC: 10E0XZZ Delivery of Products of Conception, External Approach (ICD-10-PCS; principal; 2018-11-18)
PROC: 0HQ9XZZ Repair Perineum Skin, External Approach (ICD-10-PCS; 2018-11-18)
DX: O70.0 First degree perineal laceration during delivery (principal); Z37.0 Single live birth; Z3A.39 39 weeks gestation of pregnancy
CPT/HCPCS: 85014; 85018; 85025; 85610; 85730; 86592; 86850; 86900; 86901; 87340; 99464; G0463; J0290; J2590; J7120